=== PATIENT | female | born 1935 | race Caucasian/White ===

== ENCOUNTER 2020-04-15 13:05 | Inpatient (IN) | payer MEDICARE, OTHER ==
[~2020-04-15] VITALS: Ht 154.9 cm; Wt 75.7 kg
--- NOTE | 2020-04-15 13:10 | NUR ---
BIB [facility] FROM HOME, WORSENING LEFT HIP PAIN SINCE SHE TRIPPED/FELL LAST NIGHT. PATIENT A/OX3, NO DISTRESS NOTED. NEEDS ATTENDED.
--- NOTE | 2020-04-15 13:45 | NUR ---
LADLE LINER AT BEDSIDE.
--- NOTE | 2020-04-15 14:31 | NUR ---
URIEL STARTED ON [facility]. LABS DRAWN AND PICKED UP BY DIRECTOR OF VOLUNTEER SERVICES.
[2020-04-15] MEDS ORDERED: BENA20TA9 PO (14:33)
[2020-04-15] MEDS ORDERED: LEVO25TA9 PO (14:33)
[2020-04-15] MEDS ORDERED: HYDR-500 PO (14:33)
[2020-04-15 14:34] LABS: BASOPHILS % (AUTO) 0.3 % (0.0-2.0); EOSINOPHILS % (AUTO) 0.3 % (0.0-6.0); HEMATOCRIT 37 % (33-45); HEMOGLOBIN 12.5 g/dL (11.5-14.8); LYMPHOCYTES # (AUTO) 0.3 /CMM (0.8-4.8); LYMPHOCYTES % (AUTO) 3.3 % (20.0-44.0); MEAN CORPUSCULAR HGB CONC 34 g/dl (31.0-36.0); MEAN CORPUSCULAR VOLUME 100 fL (82-100); MONOCYTES # (AUTO) 0.7 /CMM (0.1-1.30); MONOCYTES % (AUTO) 7.8 % (2.0-12.0); NEUTROPHILS # (AUTO) 8.2 /CMM (1.8-8.9); NEUTROPHILS % (AUTO) 88.3 % (43.0-81.0); PLATELET COUNT (AUTO) 244 /CMM (150-450); RED BLOOD CELL COUNT(AUTO) 3.69 MIL/uL (4.0-5.2); WHITE BLOOD COUNT (AUTO) 9.2 K/uL (4.3-11.0)
[2020-04-15 14:41] LABS: CALCIUM, SERUM 9.2 mg/dL (8.5-10.1); POTASSIUM 4.2 mmol/L (3.5-5.1)
--- NOTE | 2020-04-15 16:11 | NUR ---
COVID RESULT: NEGATIVE
--- NOTE | 2020-04-15 16:44 | NUR ---
Patient is resting comfortably in bed with eyes closed. Easily aroused. VSS
--- NOTE | 2020-04-15 17:00 | NUR ---
MARTINE VALDIVIA STATES PATIENT IS ACCEPTED AT [facility], BUT THE BED ASSIGNMENT STILL PENDING.
[2020-04-15] MEDS ORDERED: FENTANYL PF 100MCG/2ML AMPUL ONE (17:10)
[2020-04-15] MEDS ORDERED: FENTANYL PF 100MCG/2ML AMPUL IV ONE (17:30)
--- NOTE | 2020-04-15 18:28 | NUR ---
PATIENT REFUSED TO HAVE VITALS TAKEN. PATIENT IS STARTING TO BECOME ANXIOUS BECAUSE OF THE WAIT FROM THE INSURANCE.
--- NOTE | 2020-04-15 18:29 | NUR ---
pt asked to call her friend Diana Madsen at [phone]. Left message and awaiting her call. Addendum: 04/15/20 at 1937 by OCTAVIO luli number
--- NOTE | 2020-04-15 18:42 | NUR ---
CARLO RIVAS, FRIEND,
--- NOTE | 2020-04-15 18:57 | NUR ---
PAGED [facility].
--- NOTE | 2020-04-15 19:17 | NUR ---
GAVE REPORT TO VAMSHI JONES FOR CONTINUITY OF CARE. NO ACUTE DISTRESS NOTED AT THIS TIME.
--- NOTE | 2020-04-15 19:59 | NUR ---
pt remains in bed, resting comfortably, VSS, will continue to monitor
--- NOTE | 2020-04-15 20:02 | NUR ---
SPOKE WITH ROUTE DELIVERY SUPERVISOR MARTINE, STILL NO BED AVAILABLE AT THIS TIME FOR TRANSFER. MD CASAREZ
--- NOTE | 2020-04-15 20:33 | NUR ---
UPDATED DOMINGO CASTILLO OVER THE PHONE ABOUT ADMITING PATIENT OVER NIGHT
--- NOTE | 2020-04-15 20:54 | NUR ---
BED ASSIGNMENT 313-1
[2020-04-15] MEDS ORDERED: Z GUARD REMEDY 2 OZ OINT TP PRN (21:30)
[2020-04-15] MEDS ORDERED: MAGNESIUM HYDROXIDE 30 ML UDC PO PRN (21:30)
[2020-04-15] MEDS ORDERED: ZOLPIDEM TARTRATE 5 MG TABLET PO PRN (21:30)
[2020-04-15] MEDS ORDERED: MAG HYDROX/AL HYDROX/SIMETH 30 ML UDC PO PRN (21:30)
[2020-04-15] MEDS ORDERED: HYDROCODONE/APAP 5/325MG TABLET PO PRN (21:30)
[2020-04-15] MEDS ORDERED: MORPHINE SULFATE INJ 2 MG/ML DISP.SYRIN IV PRN (21:30)
[2020-04-15] MEDS ORDERED: ACETAMINOPHEN 325 MG TABLET PO PRN (21:30)
--- NOTE | 2020-04-15 21:36 | NUR ---
PT TRANSFERED TO 313
[2020-04-15 22:00] VITALS: BP 164/98
--- NOTE | 2020-04-15 22:00 | NUR ---
RN OPENING NOTE PT RECEIVED IN BED A/O X3. PT IS ON RA SATING ABOVE 95%. PT HAS UNLABORED BREATHING. SAFETY MEASURES IN PLACE BED AT LOWEST POSITION, LOCKED SIDE RAILS UP X2, CALL LIGHT IN REACH. WILL CONTINUE TO MONITOR.
--- NOTE | 2020-04-15 23:00 | NUR ---
RN NOTE PT REFUSED SKIN ASSESSMENT D/T RIGHT HIP AND LEFT KNEE PAIN.
--- NOTE | 2020-04-16 07:11 | NUR ---
RN CLOSING NOTE PT REMAINED STABLE DURING MY SHIFT. REPORT GIVEN TO INCOMING SHIFT FOR RADHA.
[2020-04-16 07:39] LABS: BASOPHILS # (AUTO) 0.1 /CMM (0.0-0.2); BASOPHILS % (AUTO) 0.6 % (0.0-2.0); HEMATOCRIT 39 % (33-45); LYMPHOCYTES # (AUTO) 0.3 /CMM (0.8-4.8); LYMPHOCYTES % (AUTO) 3.1 % (20.0-44.0); MEAN CORPUSCULAR HGB CONC 34 g/dl (31.0-36.0); MEAN CORPUSCULAR VOLUME 99 fL (82-100); MONOCYTES # (AUTO) 1.1 /CMM (0.1-1.30); MONOCYTES % (AUTO) 9.9 % (2.0-12.0); NEUTROPHILS # (AUTO) 9.3 /CMM (1.8-8.9); NEUTROPHILS % (AUTO) 86.4 % (43.0-81.0); PLATELET COUNT (AUTO) 253 /CMM (150-450); RED BLOOD CELL COUNT(AUTO) 3.89 MIL/uL (4.0-5.2); WHITE BLOOD COUNT (AUTO) 10.7 K/uL (4.3-11.0)
[2020-04-16 07:43] LABS: CALCIUM, SERUM 9.4 mg/dL (8.5-10.1); CREATININE 0.9 mg/dL (0.6-1.3); POTASSIUM 4.1 mmol/L (3.5-5.1)
[2020-04-16 07:49] LABS: THYROID STIMULATING HORMONE 2.898 uIU/mL (0.358-3.74)
[2020-04-16] MEDS ORDERED: LEVOTHYROXINE SODIUM 25 MCG TABLET PO SCH (08:00)
[2020-04-16] MEDS ORDERED: hydrOXYzine PAMOATE 25 MG CAPSULE PO PRN (08:00)
--- NOTE | 2020-04-16 08:03 | NUR ---
MS RN OPENING NOTES PATIENT IS AWAKE A/O X 3. NO SIGNS OF DISTRESS IN ROOM AIR. IV L AC#20G INTACT. NO COMPLAIN OF PAIN OR DISCOMFORT AT THIS MOMENT. CORONADO CATHETER INTACT. SAFETY MEASURES ARE BEING APPLIED, BED IS IN LOW POSITION SIDE RAILS UP X 2 FOR SAFETY. CALL LIGHT WITHIN REACH. WILL CONTINUE TO MONITOR.
[2020-04-16 08:24] VITALS: BP 153/84
[2020-04-16] MEDS ORDERED: BENAZEPRIL HCL 20 MG TABLET PO SCH (09:00)
[2020-04-16 10:01] LABS: IRON, SERUM 32 ug/dl (50-175); TOTAL IRON BINDING CAPACITY 290 ug/dl (250-450)
[2020-04-16 10:12] LABS: FERRITIN 333 ng/mL (8-388)
[2020-04-16] MEDS: ONDANSETRON HCL/PF 4 MG/2 ML VIAL IVP PRN ×2 (11:53→22:34)
[2020-04-16 15:43] VITALS: BP 155/84
--- NOTE | 2020-04-16 17:25 | NUR ---
10:45am This SW met with the patient at bedside for a continuation of care consult requested by Cathy Silva DO. Patient was alert and oriented x3. Patient is an 84-year-old woman. Patient presented to [facility] from home for left hip pain due to a fall. Patient confirmed information on the face sheet including date of , social security number, and address. Patient reports that she lives in a home by herself and has a cleaning lady come once every 2 weeks. Patient requested more information regarding caregiving. This SW informed the patient about in-home support services, this patient was receptive to the idea and wanted to learn more. Patient reports that her recently and that she is currently living off their life savings and SSI. Patient could not report approximately how much she receives. Patient denies alcohol, drug, and cigarette use. 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 Patient denies auditory hallucinations. Patient denies suicidal and homicidal ideations. Patient believes she was diagnosed with depression in the past but cannot actively remember. This SW to provide this information including application and eligibility.
--- NOTE | 2020-04-16 17:25 | NUR ---
11:20am This SW provided this patient with information regarding in-home support services directly off the website: https://www.cdss.[place].gov/gs-dznj-bunyjsplgr-services, Including eligibility requirements and application. In-Home Supportive Services (IHSS) Program The IHSS Program will help pay for services provided to you so that you can remain safely in your own home. To be eligible, you must be over 65 years of age, or disabled, or blind. Disabled children are also potentially eligible for IHSS. IHSS is considered an alternative to out-of-home care, such as nursing homes or board and care facilities. The types of services which can be authorized through IHSS are housecleaning, meal preparation, laundry, grocery shopping, personal care services (such as bowel and bladder care, bathing, grooming and paramedical services), accompaniment to medical appointments, and protective supervision for the mentally impaired. Who is it For: Eligibility criteria for all IHSS applicants and recipients: You must physically reside in the [facility]. You must also be a [place] resident. You must have a [employer] eligibility determination. You must live at home or an abode of your own choosing (acute care hospital, long-term care facilities, and licensed community care facilities are not considered "own home"). You must submit a completed Health Care Certification form. How the program works: A [facility] high school social studies tutor will interview you at your home to determine your eligibility and need for IHSS. Based on your ability to safely perform certain tasks for yourself, the high school social studies tutor will assess the types of services you need and the number of hours the county will authorize for each of these services. This assessment will include information given by you and, if appropriate, by your family, friends, physician or other licensed health care provider. A completed Health Care Certification (SOC 873) must be received by the county prior to authorization of services. You will be notified if IHSS has been approved or denied. If denied, you will be notified of the reason for the denial. If approved, you will be notified of the services and the number of hours per month which have been authorized for you. If you are approved for IHSS, you must hire someone (your individual provider) to perform the authorized services. You are considered your provider's employer and, therefore, it is your responsibility to hire, train, supervise, and fire this individual. If your county has contracted IHSS providers, you may choose to have services provided by the contractor. If your county has homemaker employees, you may receive services from a county homemaker. How are IHSS payments made? You may contact the high school social studies tutor assigned to your case to determine the IHSS hourly rate in your county. Because unions negotiate with the employer of record in each county, the wage rates may vary from county to county. The State issues all checks for individual provider payments. If the provider qualifies, the State withholds the applicable amounts for disability insurance and Social Security taxes. How to Apply: To apply for IHSS, complete an application and submit it to your county IHSS Office.
[2020-04-16 17:35] VITALS: BP 166/89
--- NOTE | 2020-04-16 19:30 | NUR ---
MS CLOSING NOTES PATIENT IS AWAKE A/O X 3. NO SIGNS OF DISTRESS IN ROOM AIR. IV L AC#20G INTACT. NO COMPLAIN OF PAIN OR DISCOMFORT AT THIS MOMENT. CORONADO CATHETER INTACT. SAFETY MEASURES ARE BEING APPLIED, BED IS IN LOW POSITION SIDE RAILS UP X 2 FOR SAFETY. INTACT. PATIENT REMAINED STABLE THROUGH OUT SHIFT. PATIENT KEPT CLEAN AND DRY. ALL NEEDS, CARE, TREATMENT AND MEDICATIONS ADMINISTERED ANTICIPATED PER ORDER. SAFETY MEASURES ARE APPLIED, BED IN LOW POSITION, LOCKED SIDE RAILS UP X 2 FOR SAFETY. GAVE DISCHARGE REPORT TO SNF NURSE CRISTY RUEDA [facility] AND DISCHARGE PAPER WORK READY, WILL ENDORSE TO OFFSET LITHOGRAPHIC PRESS OPERATOR NURSE FOR EMS HELICOPTER PILOT AT 2100. CALL LIGHT WITHIN REACH WILL ENDORSE TO THE OFFSET LITHOGRAPHIC PRESS OPERATOR NURSE.
--- NOTE | 2020-04-16 19:35 | NUR ---
MS/RN OPENING NOTES: RECEIVED PT. IN BED, AWAKE RESTING IN BED. A/OX3. VERBALLY RESPONSIVE AND ABLE TO MAKE NEEDS KNOWN. ON ROOM AIR, SATURATING WELL. NO SOB NOTED, NO S/S OF DISTRESS. NO COMPLAINTS OF PAIN AT THIS TIME. FC NOTED DRAINING CLEAR YELLOW URINE. SKIN INTACT. IV ON THE LEFT AC #20G. WILL REMOVE WHEN NET PROGRAMMER ANALYST IS HERE. DAY SHIFT NURSE NANCY RUEDA [facility] [phone], AGVE REPORT TO NURSE MUNIZ AND PT WILL BE GOING TO ROOM 10B. ALL DISCHARGE PAPERS SIGNED, AND PT EDUCATION GIVEN. ALL BELONGINGS LIST CHECKED. WILL CONTINUE TO MONITOR IN THE MEAN TIME BEFORE DC.
[2020-04-16 20:00] VITALS: BP 155/76
--- NOTE | 2020-04-16 21:51 | NUR ---
MS/RN NOTES: CALLED [facility] REGARDING TIME FOR PICKUP. SPOKE TO ITALO, PER ITALO "AMBULANCES ARE BEING HELD UP BY [facility] RIGHT NOW BUT THEY SHOULD BE THERE IN AN HOUR." CHARGE NURSE AWARE. PATIENT MADE AWARE. WILL CONTINUE TO MONITOR.
[2020-04-16 22:00] VITALS: BP 155/76
--- NOTE | 2020-04-16 22:41 | NUR ---
MS/RN NOTES: [facility] ARRIVED TO THE UNIT FOR TRANSFER. PT IS SUDDENLY NAUSEOUS CAUSING HER BP TO RISE. ZOFRAN 4MG GIVEN IVP ORDERED PRN FOR NAUSEA. WILL CONTINUE TO MONITOR.
--- NOTE | 2020-04-16 23:01 | NUR ---
MS/RN NOTES: PT'S VS WITHIN BASELINE. 142/84 HR: 100S. ROOM AIR SATURATING WELL. [facility] TRANSFERRING PT TO THE [facility] FOR DISCHARGE TO [facility].
--- NOTE | 2020-04-16 23:05 | NUR ---
MS/RN NOTES: IV REMOVED. APPLIED GAUZE AND TAPE TO AVOID BLEEDING.
--- NOTE | 2020-04-16 23:10 | NUR ---
MS/EDGE WORKER NOTES: PT LEFT THE UNIT VIA GURNEY AT 2310. IN STABLE CONDITION. PT A/O X3-4.
== END 2020-04-16 23:10 | DRG 536 ==
LOC: ER 13:24 → MED 21:02
PROVIDERS: ADMIT Student in an Organized Health Care Education/Training Program
DX: S32.591A Other specified fracture of right pubis, initial encounter for closed fracture (principal); E22.2 Syndrome of inappropriate secretion of antidiuretic hormone; K56.7 Ileus, unspecified; W01.0XXA Fall on same level from slipping, tripping and stumbling without subsequent striking against object, initial encounter; E03.9 Hypothyroidism, unspecified; J44.9 Chronic obstructive pulmonary disease, unspecified; I10 Essential (primary) hypertension; Z85.51 Personal history of malignant neoplasm of bladder; D64.9 Anemia, unspecified; N17.9 Acute kidney failure, unspecified; E86.1 Hypovolemia; Y92.89 Other specified places as the place of occurrence of the external cause
CPT/HCPCS: 36415; 71045-TC; 72192-TC; 73502; 73564-TC; 74018; 80048-TC; 82728-TC; 83540-TC; 83735-TC; 84100-TC; 84443-TC; 85025-TC; 85610-TC; 86850-TC; 87081-TC; 93307-TC; 97530-TC; C9803-CS; G0378; J2270; J2405; J3010; Q0177